=== PATIENT | male | born 1970 | race Caucasian/White ===

== ENCOUNTER 2019-06-14 16:30 | Outpatient (RCR) | payer MEDICAID, SELFPAY ==
--- NOTE | 2019-06-22 09:05 | HP.FCE ---
HP OT Functional Capacity Eval - Task Lift Floor (Occasional 1-33% of Day): 60lb Floor (Frequent 34-66% of Day): 30lb Floor (Constant 67-100% of Day): 12lb Floor PDL: Medium Knee (Occasional 1-33% of Day): 45lb Knee (Frequent 34-66% of Day): 24lb Knee (Constant 67-100% of Day): 9lb Knee PDL: Light-Medium Waist (Occasional 1-33% of Day): 45lb Waist (Frequent 34-66% of Day): 24lb Waist (Constant 67-100% of Day): 9lb Waist PDL: Light-Medium Shoulder (Occasional 1-33% of Day): 45lb Shoulder (Frequent 34-66% of Day): 24lb Shoulder (Constant 67-100% of Day): 9lb Shoulder PDL: Light-Medium Overhead (Occasional 1-33% of Day): 45lb Overhead (Frequent 34-66% of Day): 24lb Overhead (Constant 67-100% of Day): 9lb Overhead PDL: Light-Medium - Work Activity/Posture Bending: Occasional Ability (1-33% of day) Squatting: Occasional Ability (1-33% of day) Kneeling: Occasional Ability (1-33% of day) Reaching out: Occasional Ability (1-33% of day) Reaching up: Occasional Ability (1-33% of day) Sitting: Constant Ability (67-100% of day) Walking: Frequent Ability (34-66% of day) Standing: Frequent Ability (34-66% of day) - Reference Duration Sedentary Sedentary Light Light Light Medium Medium Medium Heavy Very Heavy Heavy Occasional (0-33% of day) Frequent (34-66% of day) Constant (67-100% of day) 10 # Negligible Negligible 15 # 8 # Negligible 20 # 10# Negli. 35 # 18 # 7 # 50 # 25 # 10 # 75 # 100 # >100 # 38 # 50 # >50 # 15 # 20 # >20 # - Patient Information Height: 5 ft 9 in Weight:: 102.965 kg Hand Dominance: Right - Medical History Medical History Including Restrictions: Pt reports the following: chronic cluster headache, HTN, DMII, bilateral ulnar nerve sx, bilateral capral tunnel sx, trigger finger L thumb, R rotator cuff sx, radial nerve sx, hernia sx, syncope episodes, ataxia, adrenal myeloliopoma, mass on L kidney, radial neuropahty, chr insomnia, depressive d/o, optical neuralgia R side, anxiety, persistant asthma. - Diagnoses Diagnoses: Pt reports the following: chronic cluster headache, HTN, DMII, bilateral ulnar nerve sx, bilateral capral tunnel sx, trigger finger L thumb, R rotator cuff sx, radial nerve sx, hernia sx, syncope episodes, ataxia, adrenal myeloliopoma, mass on L kidney, radial neuropahty, chr insomnia, depressive d/o, optical neuralgia R side, anxiety, persistant asthma. - Symptoms Symptoms: Pt states the following; chronic cluster headaches 20-25 days per month, 4-5per day 10-15 minutes to 2 hrs long. numbness in R hand. Weakness L side arm and leg. - Pain Pain: Pt reports: cluster headaches burning, stabbing behind eye, side of head, jaw area and neck. Lower back pain, aching, pulling pain. 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 - ADLS ADLS: Pt lives in duplex with girlfriend and threshold to enter . Flight of steps to basement 1 handrail to hold onto, able to get up/down steps if needed. Pt has std cane available but indep w/ AMB. Pt indep w/ BADL tasks, extra time needed. Girlfriend primarily does laundry. Heavy meal prep completed by girlfriend. Pt able to independently make simple meals. Pt has cats and 1 dog and indep w/ caring for animals. Does not drive. Pt has difficult time reading, difficult time with bright lights and flashing lights. - Physical Examination Physical Examination: waiting to complete all BUE ROM and strengthening tasks until cleared by dr for sx had completed R radial nerve 05/05/19. Pt states at re-eval 06/14 nodule growth L kidney, L adrenal gland. ROM: BUE WFL, BLE WFL Strength: R UE 4/5 L UE 3+/5, R LE 4/5, L LE 3+/5 Right Equipment Mechanic Specialist Strength Average: 93.66 Left Equipment Mechanic Specialist Strength Average: 30.33 Right Lateral Pinch Average: 15.33 Left Lateral Pinch Average: 9.66 Right Tripod Pinch Average: 13.00 Left Tripod Pinch Average: 9.00 Sensation: Pt reports; numbness and tingling bilateral feet, comes and goes, numbness and tingling R UE thumb, IF to elbow constant. Pt just had R radial nerve repair. Fine Motor: Pt states time to time difficulty with buttoning and zipping. 9 hole peg test R 25.6, L 40.4 Balance: Pt has decreased balance, states it's an every day thing with decreased balance. No falls but close calls. Pt did demo unsteadiness while standing on one foot and with attempt to kneel. - Non Material Handling Activities [employer], 10x, 7x fast, had to stop because of dizziness and back pain. Used L hand on desk for support. [employer], 10x, 10x fast, had to stop between set 10 and 10 fast secondary to dizziness states he has the dizziness all the time, used L hand on desk for suport Kneeling: attempted kneeling, pt didn't have strength to come back up to standing position on L side. Unable to complete all kneeling. Reaching out/up: Reaching up 1x, 10x, 10x fast, had to wear sunglasses secondary to states would get dizzy if had to look at flurescent lights. 1x, 10x, 10x fast. Walking: completed 15 min walk test no break needed, no loss of balance. Standing: Pt able to stand for a few minutes at a time between tasks, preferred to sit between physical activitiy tasks secondary to dizziness. Sitting: Pt able to sit for 20 minutes beginning of eval without moving or s/s of discomfort. Climbing Stairs: Pt able to climb flight of 10 steps up/down reciprocal movement holding onto bilateral handrails. - Dynamic Occasional Lifting Capacity Floor Lift: 60lb Knee Lift: 45lb Waist Lift: 45lb Shoulder Lift: 45lb Overhead Lift: 45lb Carryinlb Comments: Pt demo increased weakness L side in leg and arm with lifting tasks to lift and carry box's.
== END 2019-06-14 19:00 | disposition home or self-care (01) ==
LOC: OT 16:30
PROVIDERS: Family Provider Internal Medicine; PCP Internal Medicine; Referring Provider Internal Medicine; Visit Provider Internal Medicine
DX: G44.029 Chronic cluster headache, not intractable (principal)
CPT/HCPCS: 97165; 97166; 97750